=== PATIENT | male | born 1945 | race American Indian/Alaskan Native ===

== ENCOUNTER 2017-01-30 17:43 | Emergency (ER) | payer BC, MEDICARE ==
[2017-01-30 17:43] VITALS: BMI 32.1
[2017-01-30 18:07] VITALS: O2SAT 98
--- NOTE | 2017-01-30 19:31 | C.PDOC ---
History Of Present Illness 72 y/o male presents to the ED with complains of suprapubic distention and unsatisfactory urination for the past 2-3 days. Pt denies fever, abdominal pain , vomiting, diarrhea, back pain or any other complaints. Time Seen by Provider: 01/30/17 19:25 Chief Complaint (Nursing): Male Genitourinary History Per: Patient History/Exam Limitations: no limitations Onset/Duration Of Symptoms: Days Current Symptoms Are (Timing): Still Present Severity: Mild Quality Of Discomfort: denies: "Pain" Associated Symptoms: denies: Fever, Chills, Nausea, Vomiting, Diarrhea, Back Pain Alleviating Factors: None Recent travel outside of the [place]: No Past Medical History Reviewed: Historical Data, Nursing Documentation, Vital Signs Vital Signs: Last Vital Signs Temp 97.8 F 01/30/17 20:07 Pulse 67 01/30/17 20:07 Resp 20 01/30/17 20:07 BP 143/81 01/30/17 20:07 Pulse Ox 98 01/30/17 20:07 - Medical History PMH: Arthritis (LEFT KNEE), Back Problems, Gall Bladder Disease, HTN, Hypercholesterolemia, Kidney Stones (25 years ago) Surgical History: Cholecystectomy (2009) Family History: States: Unknown Family Hx - Social History Hx Alcohol Use: No Hx Substance Use: No - Immunization History Hx Tetanus Toxoid Vaccination: Yes Hx Influenza Vaccination: Yes Hx Pneumococcal Vaccination: Yes Review Of Systems Except As Marked, All Systems Reviewed And Found Negative. Constitutional: Negative for: Fever, Chills Gastrointestinal: Positive for: Other (suprapubic distention). Negative for: Nausea, Vomiting, Abdominal Pain, Diarrhea Genitourinary: Positive for: Other (inability to urinate) Musculoskeletal: Negative for: Back Pain Physical Exam - Physical Exam Appears: Non-toxic, No Acute Distress Skin: Warm, Dry, No Rash Head: Atraumatic, Normacephalic Neck: Normal ROM, Supple Chest: Symmetrical Cardiovascular: Rhythm Regular, No Murmur Respiratory: Normal Breath Sounds, No Rales, No Rhonchi, No Wheezing Gastrointestinal/Abdominal: No Tenderness, Distention (suprapubic) Back: No CVA Tenderness Extremity: Bilateral: Atraumatic Neurological/Psych: Oriented x3, Normal Speech ED Course And Treatment O2 Sat by Pulse Oximetry: 98 (on room air) Pulse Ox Interpretation: Normal Medical Decision Making Medical Decision Making: Bladder US showed 600cc urine. parker to leg bag for 650 cc f/u pending w Dr. Arora prior to arrival. Disposition Doctor Will See Patient In The: Office Counseled Patient/Family Regarding: Studies Performed, Diagnosis - Disposition Referrals: Dallas Arora Jr., MD [Staff Provider] - Disposition: HOME/ ROUTINE Disposition Time: 19:30 Condition: GOOD Additional Instructions: continue leg bag as normal Continue Flomax 0.4 mg every NIGHT Follow-up w Dr. Arora on Thursday 02/01 as scheduled. Instructions: Urinary Retention in Men (ED), Urinary Leg Bag (GEN) - Clinical Impression Clinical Impression: Urinary retention - Scribe Statement The provider has reviewed the documentation as recorded by the Scribandie Mcghee Provider Attestation: All medical record entries made by the Scribe were at my direction and personally dictated by me. I have reviewed the chart and agree that the record accurately reflects my personal performance of the history, physical exam, medical decision making, and the department course for this patient. I have also personally directed, reviewed, and agree with the discharge instructions and disposition.
[2017-01-30 19:47] LABS: RBC URINE 8 /hpf (0-3); URINE BACTERIA RARE (<OCC); URINE BILIRUBIN NEGATIVE (NEGATIVE); URINE BLOOD 1+ (NEGATIVE); URINE COLOR Straw (YELLOW); URINE GLUCOSE (UA) NORMAL (Normal); URINE KETONE NEGATIVE (NEGATIVE); URINE LEUKOCYTE ESTERASE NEG Leu/uL (Negative); URINE PROTEIN NEGATIVE (NEGATIVE); URINE UROBILINOGEN NORMAL mg/dL (0.2-1.0); WBC URINE 1 /hpf (0-5)
[2017-01-30 20:08] VITALS: BP 143/81; PULSE 67; RESP 20; TEMP 97.8
== END 2017-01-30 20:10 | disposition home or self-care (01) ==
LOC: C.ER 17:43
DX: R33.9 Retention of urine, unspecified (principal)

== ENCOUNTER 2017-02-03 17:31 | Emergency (ER) | payer BC, MEDICARE ==
[2017-02-03 17:31] VITALS: BMI 32.1
[2017-02-03 17:46] VITALS: RESP 18
[2017-02-03] MEDS ORDERED: Tmp-Smz 800 mg-160 mg DS Tab PO STA (18:56)
--- NOTE | 2017-02-03 18:56 | C.PDOC ---
History Of Present Illness 72 year old male presents to the ED with complaints of hematuria in his leg bag. Patient had a parker leg bag placed 5 days ago for urine retention and is pending prostate surgery in [address] Arora. He has no other complaints at this time. Time Seen by Provider: 02/03/17 17:54 Chief Complaint (Nursing): Male Genitourinary History Per: Patient History/Exam Limitations: no limitations Onset/Duration Of Symptoms: Hrs Current Symptoms Are (Timing): Still Present Severity: Mild Associated Symptoms: Urinary Symptoms Past Medical History Reviewed: Historical Data, Nursing Documentation, Vital Signs Vital Signs: Last Vital Signs Temp 98 F 02/03/17 19:10 Pulse 73 02/03/17 19:10 Resp 18 02/03/17 19:10 BP 142/78 02/03/17 19:10 Pulse Ox 98 02/03/17 20:49 - Medical History PMH: Arthritis (LEFT KNEE), Back Problems, Gall Bladder Disease, HTN, Hypercholesterolemia, Kidney Stones (25 years ago) Surgical History: Cholecystectomy (2009) Family History: States: Unknown Family Hx - Social History Hx Alcohol Use: No Hx Substance Use: No - Immunization History Hx Tetanus Toxoid Vaccination: Yes Hx Influenza Vaccination: Yes Hx Pneumococcal Vaccination: Yes Review Of Systems Except As Marked, All Systems Reviewed And Found Negative. Constitutional: Negative for: Fever, Chills Gastrointestinal: Negative for: Nausea, Vomiting, Abdominal Pain Genitourinary: Positive for: Hematuria Musculoskeletal: Negative for: Back Pain Physical Exam - Physical Exam Appears: Non-toxic, No Acute Distress, Other (+Leg bag with bloody urine. No clots) Skin: Normal Color, Warm, Dry Head: Atraumatic, Normacephalic Eye(s): bilateral: Normal Inspection Oral Mucosa: Moist Chest: Symmetrical Respiratory: No Accessory Muscle Use Gastrointestinal/Abdominal: No Soft, No Distention Extremity: Normal ROM Neurological/Psych: Oriented x3, Normal Speech, Normal Cognition ED Course And Treatment O2 Sat by Pulse Oximetry: 98 (Room air) Pulse Ox Interpretation: Normal Progress Note: Urinalysis ordered and reviewed. Patient treated with Bactrim. 18:00- Case discussed with Dr. Hernandez. Medical Decision Making Medical Decision Making: MILD hematuria with parker in place. Flushed and normal fxn. Pending prostate Surgery in [address] Arora Disposition Doctor Will See Patient In The: Office Counseled Patient/Family Regarding: Studies Performed, Diagnosis - Disposition Referrals: Dallas Arora Jr., MD [Staff Provider] - Disposition: HOME/ ROUTINE Disposition Time: 18:55 Condition: GOOD Additional Instructions: continue the leg bag Continue Bactrim DS (antibiotic) to take twice daily to prevent urinary tract infections. Follow-up with Dr. Arora on Monday for your procedure as scheduled. Prescriptions: Sulfamethoxazole/Trimethoprim [Bactrim DS 800 mg-160 mg] 1 tab PO BID #14 tab Instructions: Acute Hematuria (ED), Urinary Leg Bag (GEN) - Clinical Impression Clinical Impression: Hematuria - Scribe Statement The provider has reviewed the documentation as recorded by the Scribe Navjot Reynaga. Provider Attestation: All medical record entries made by the Scribe were at my direction and personally dictated by me. I have reviewed the chart and agree that the record accurately reflects my personal performance of the history, physical exam, medical decision making, and the department course for this patient. I have also personally directed, reviewed, and agree with the discharge instructions and disposition.
[2017-02-03] MEDS ORDERED: Tmp-Smz 800 mg-160 mg DS Tab ONE (19:04)
[2017-02-03 19:11] VITALS: BP 142/78; PULSE 73; TEMP 98
[2017-02-03 19:15] LABS: RBC URINE 54690 /hpf (0-3); URINE BACTERIA RARE (<OCC); URINE BILIRUBIN NEGATIVE (NEGATIVE); URINE BLOOD 3+ (NEGATIVE); URINE COLOR Amber (YELLOW); URINE GLUCOSE (UA) 1+ mg/dL (Normal); URINE KETONE 1+ mg/dL (NEGATIVE); URINE PROTEIN 2+ mg/dL (NEGATIVE); URINE UROBILINOGEN NORMAL mg/dL (0.2-1.0); WBC URINE 29 /hpf (0-5)
[2017-02-03 19:17] LABS: URINE LEUKOCYTE ESTERASE 1+ Leu/uL (Negative)
[2017-02-03 20:46] VITALS: O2SAT 98
== END 2017-02-03 19:11 | disposition home or self-care (01) ==
LOC: C.ER 17:31
DX: R31.9 Hematuria, unspecified (principal)

== ENCOUNTER 2017-02-04 16:59 | Emergency (ER) | payer BC ==
[2017-02-04 17:07] VITALS: BMI 32.8
[2017-02-04 19:13] LABS: RBC URINE 5320 /hpf (0-3); URINE BACTERIA RARE (<OCC); URINE BILIRUBIN NEGATIVE (NEGATIVE); URINE BLOOD 3+ (NEGATIVE); URINE COLOR Red (YELLOW); URINE GLUCOSE (UA) NORMAL (Normal); URINE KETONE NEGATIVE (NEGATIVE); URINE LEUKOCYTE ESTERASE TRACE Leu/uL (Negative); URINE PROTEIN 2+ mg/dL (NEGATIVE); WBC URINE 7 /hpf (0-5)
--- NOTE | 2017-02-04 20:00 | C.PDOC ---
History Of Present Illness Pt c/o that the urine stopped coming out from the catheter. He c/o suprapubic pain. Time Seen by Provider: 02/04/17 17:26 Chief Complaint (Nursing): Male Genitourinary History Per: Patient Onset/Duration Of Symptoms: Hrs (today) Current Symptoms Are (Timing): Still Present Severity: Moderate Quality Of Discomfort: Pressure Alleviating Factors: None Additional History Per: Prior Records Past Medical History Reviewed: Historical Data, Nursing Documentation, Vital Signs Vital Signs: Last Vital Signs Temp 97.6 F 02/04/17 17:07 Pulse 99 H 02/04/17 17:07 Resp 20 02/04/17 17:07 BP 129/84 02/04/17 17:07 Pulse Ox 98 02/04/17 17:07 - Medical History PMH: Arthritis (LEFT KNEE), Back Problems, Gall Bladder Disease, HTN, Hypercholesterolemia, Kidney Stones (25 years ago), Chronic Kidney Disease Surgical History: Cholecystectomy (2009) Family History: States: Unknown Family Hx - Social History Hx Alcohol Use: No Hx Substance Use: No - Immunization History Hx Tetanus Toxoid Vaccination: Yes Hx Influenza Vaccination: Yes Hx Pneumococcal Vaccination: Yes Review Of Systems Except As Marked, All Systems Reviewed And Found Negative. Constitutional: Negative for: Fever, Weakness Cardiovascular: Negative for: Chest Pain Respiratory: Negative for: Shortness of Breath Gastrointestinal: Negative for: Vomiting Genitourinary: Positive for: Hematuria. Negative for: Scrotal Pain Musculoskeletal: Negative for: Neck Pain, Back Pain Skin: Negative for: Rash Neurological: Negative for: Weakness, Numbness, Seizures, Altered Mental Status Physical Exam - Physical Exam Appears: Non-toxic, No Acute Distress Skin: Normal Color, Warm, Dry Head: Atraumatic, Normacephalic Eye(s): bilateral: PERRL, EOMI Oral Mucosa: Moist Neck: Normal ROM, Supple Cardiovascular: Rhythm Regular Respiratory: Normal Breath Sounds, No Accessory Muscle Use Gastrointestinal/Abdominal: Soft, Tenderness (mild suprapubic), Other ( distended urinary bladder) Back: No CVA Tenderness Male Genital: No Testicular Tenderness, No Testicular Swelling, No Inguinal Tenderness, No Inguinal Swelling, No Scrotal Swelling, Other (Parker catheter in place) Extremity: Normal ROM Neurological/Psych: Oriented x3, Normal Motor, Normal Sensation ED Course And Treatment O2 Sat by Pulse Oximetry: 98 Pulse Ox Interpretation: Normal Progress Note: Parker catheter was flushed by RN with success. The urine is flowing throught the parker catheter again with relief of symptoms. Pt now feels much better and wants to go home. He has an appointment with Dr. Arora in 2 days. Reassessment Condition: Improved Disposition Counseled Patient/Family Regarding: Studies Performed, Diagnosis, Need For Followup - Disposition Referrals: Emerson Hernandez MD [Staff Provider] - Dallas Arora Jr., MD [Staff Provider] - Disposition: HOME/ ROUTINE Disposition Time: 20:01 Condition: IMPROVED Additional Instructions: Drink plenty of fluids. Follow up with your Urologist in 2 days. Return to the ER if you develop pain, fever, urine stops coming out, worsening of symptoms or if you have any other concerns. Instructions: Parker Catheter Placement and Care (ED), Urinary Leg Bag (GEN) - Clinical Impression Clinical Impression: Hematuria, Urinary retention, Obstructed Parker catheter
[2017-02-04 20:11] VITALS: BP 130/76; PULSE 90; RESP 18; TEMP 89.2; O2SAT 100
== END 2017-02-04 21:23 | disposition home or self-care (01) ==
LOC: C.ER 16:59
DX: T83.098A Other mechanical complication of other urinary catheter, initial encounter (principal); Y84.8 Other medical procedures as the cause of abnormal reaction of the patient, or of later complication, without mention of misadventure at the time of the procedure; R33.9 Retention of urine, unspecified; R31.9 Hematuria, unspecified

== ENCOUNTER 2017-02-06 00:18 | Emergency (ER) | payer BC ==
[2017-02-06 00:18] VITALS: BMI 32.8
[2017-02-06 00:26] VITALS: RESP 16; TEMP 97.7
--- NOTE | 2017-02-06 03:17 | C.PDOC ---
History Of Present Illness Patient presents to Ed c/o Bowers catheter malfunction where urine is leaking around catheter and leg bag shows gross hematuria. Patient sts he was in ED every day for the last 3 days with the same complains. Patient sts he has prostate problem and has surgery schedule with for today. Patient denies any pain/fever. Time Seen by Provider: 02/06/17 01:23 Chief Complaint (Nursing): Male Genitourinary History Per: Patient History/Exam Limitations: no limitations Onset/Duration Of Symptoms: Days Current Symptoms Are (Timing): Still Present Pain Scale Rating Of: 0 Quality Of Discomfort: Unable To Describe Associated Symptoms: denies: Fever, Nausea, Vomiting Past Medical History Reviewed: Historical Data, Nursing Documentation, Vital Signs Vital Signs: Last Vital Signs Temp 97.7 F 02/06/17 00:23 Pulse 91 H 02/06/17 00:23 Resp 16 02/06/17 00:23 BP 144/81 02/06/17 00:23 Pulse Ox 97 02/06/17 03:16 - Medical History PMH: Arthritis (LEFT KNEE), Back Problems, Gall Bladder Disease, HTN, Hypercholesterolemia, Kidney Stones (25 years ago) Denies: Chronic Kidney Disease Surgical History: Cholecystectomy (2009) Family History: States: Unknown Family Hx - Social History Hx Alcohol Use: No Hx Substance Use: No - Immunization History Hx Tetanus Toxoid Vaccination: Yes Hx Influenza Vaccination: Yes Hx Pneumococcal Vaccination: Yes Review Of Systems Except As Marked, All Systems Reviewed And Found Negative. Physical Exam - Physical Exam Appears: Well, Non-toxic, No Acute Distress Skin: Normal Color, Warm, No Rash Head: Atraumatic, Normacephalic Eye(s): bilateral: Normal Inspection Neck: Normal, Supple Chest: Symmetrical, Deformity Cardiovascular: Rhythm Regular Respiratory: Normal Breath Sounds Gastrointestinal/Abdominal: Normal Exam, Soft, No Tenderness Extremity: Normal ROM, No Tenderness Neurological/Psych: Oriented x3, Normal Speech, Normal Cognition ED Course And Treatment O2 Sat by Pulse Oximetry: 97 Progress Note: Bladder irrigated with NS, several blood clots came out and urine looks preschool assistant, no leakage from the Bowers catheter anymore. Patient wants to be d/c home to get ready for his surgery. Disposition - Disposition Referrals: Dallas Arora Jr., MD [Staff Provider] - Disposition: HOME/ ROUTINE Disposition Time: 03:14 Condition: IMPROVED Additional Instructions: Follow up with PMD within 1-2 days. Return to ED if feel worse. Instructions: Urinary Leg Bag (GEN) - Clinical Impression Clinical Impression: Obstructed Bowers catheter
[2017-02-06 05:04] VITALS: BP 134/82; PULSE 84; O2SAT 98
== END 2017-02-06 05:11 | disposition home or self-care (01) ==
LOC: C.ER 00:18
DX: T83.091A Other mechanical complication of indwelling urethral catheter, initial encounter (principal); Y83.8 Other surgical procedures as the cause of abnormal reaction of the patient, or of later complication, without mention of misadventure at the time of the procedure

== ENCOUNTER 2017-02-07 15:56 | Inpatient (IN) | payer BC, MEDICARE ==
[2017-02-07 15:56] VITALS: BMI 32.8
[2017-02-07 17:03] LABS: BASO # 0.1 K/uL (0.0-0.2); BASO % 0.8 % (0.0-2.0); EOS # 0.1 K/uL (0.0-0.7); EOS % 0.8 % (0.0-4.0); HEMATOCRIT 37.7 % (35.0-51.0); LYMPH # 2.3 K/uL (1.0-4.3); LYMPH % 22.1 % (20.0-40.0); MEAN CORPUSCULAR HEMOGLOBIN 29.8 pg (27.0-31.0); MEAN CORPUSCULAR HGB CONC 34.6 g/dL (33.0-37.0); MEAN PLATELET VOLUME 7.2 fL (7.2-11.7); MONO # 0.7 K/uL (0.0-0.8); MONO % 6.8 % (0.0-10.0)
[2017-02-07 17:04] LABS: WHITE BLOOD COUNT 10.5 K/uL (4.8-10.8)
[2017-02-07 17:11] LABS: INR 1.1
[2017-02-07 17:12] LABS: POTASSIUM 3.2 mmol/L (3.6-5.2)
[2017-02-07 17:14] LABS: ALB/GLOB RATIO 1.2 (1.0-2.1); BILIRUBIN,TOTAL 0.7 mg/dL (0.2-1.3); TOTAL PROTEIN 8.3 g/dL (6.3-8.3)
[2017-02-07 17:15] LABS: CALCIUM 9.5 mg/dl (8.6-10.4)
--- NOTE | 2017-02-07 17:18 | C.PDOC ---
History Of Present Illness 72 y/o male referred to ED by Dr Arora for persistent hematuria. Pt seen in [facility]'s office today, clots and blood flushed out of catheter, hematuria catheter placed (won't collapse under suction). Pt has been seen multiple times in ED for the same. Pt denies abdominal pain, vomiting, back pain or any other complaints. Time Seen by Provider: 02/07/17 16:11 Chief Complaint (Nursing): Male Genitourinary History Per: Patient History/Exam Limitations: no limitations Onset/Duration Of Symptoms: Days Current Symptoms Are (Timing): Still Present Severity: Mild Associated Symptoms: denies: Fever, Chills, Vomiting, Diarrhea, Back Pain Alleviating Factors: None Recent travel outside of the [place]: No Past Medical History Reviewed: Historical Data, Nursing Documentation, Vital Signs Vital Signs: Last Vital Signs Temp 98.9 F 02/07/17 19:10 Pulse 100 H 02/07/17 16:03 Resp 20 02/07/17 16:03 BP 134/74 02/07/17 16:03 Pulse Ox 95 02/07/17 19:10 - Medical History PMH: Arthritis (LEFT KNEE), Back Problems, Colonic Polyps, Gall Bladder Disease , HTN, Hypercholesterolemia, Kidney Stones (25 years ago) Surgical History: Cholecystectomy (2009) Family History: States: Unknown Family Hx - Social History Hx Alcohol Use: No Hx Substance Use: No - Immunization History Hx Tetanus Toxoid Vaccination: Yes Hx Influenza Vaccination: Yes Hx Pneumococcal Vaccination: Yes Review Of Systems Except As Marked, All Systems Reviewed And Found Negative. Constitutional: Negative for: Fever, Chills Gastrointestinal: Negative for: Vomiting, Abdominal Pain, Diarrhea Genitourinary: Positive for: Hematuria. Negative for: Dysuria Musculoskeletal: Negative for: Back Pain Physical Exam - Physical Exam Appears: Non-toxic, No Acute Distress, Other (Tall, black) Skin: Warm, Dry, No Rash Head: Atraumatic, Normacephalic Chest: Symmetrical Cardiovascular: Rhythm Regular, No Murmur Respiratory: Normal Breath Sounds, No Rales, No Rhonchi, No Wheezing Gastrointestinal/Abdominal: Soft, No Tenderness Back: Normal Inspection Male Genital: Other (parker in place with bloody urine) Extremity: Bilateral: Atraumatic Neurological/Psych: Oriented x3, Normal Speech ED Course And Treatment - Laboratory Results Result Diagrams: 02/07/17 16:58 02/07/17 16:58 ECG: Interpreted By Me ECG Rhythm: Sinus Rhythm ECG Interpretation: Normal Rate From EC O2 Sat by Pulse Oximetry: 95 (on room air) Pulse Ox Interpretation: Normal - Radiology CXR: Interpreted by Me CXR Interpretation: Yes: No Acute Disease Reevaluation Time: 19:08 - Physician Consult Information Outcome Of Conversation: 1899: d/w Dr. Schwartz- PMD-- ok to obs. :d/w Dr. Arora- will eval @ bedside. Medical Decision Making Medical Decision Making: Spoke to Dr Arora, he prefers patient to be admitted, pending procedure with special device. 5th ED visit for persistent hematuria with clots and leaking around the Parker- Disposition Doctor Will See Patient In The: Hospital Counseled Patient/Family Regarding: Studies Performed, Diagnosis - Disposition Disposition: HOSPITALIZED Disposition Time: 19:00 Condition: GOOD - Clinical Impression Clinical Impression: Hematuria - Scribe Statement The provider has reviewed the documentation as recorded by the Sherry Mcghee Provider Attestation: All medical record entries made by the Sherry were at my direction and personally dictated by me. I have reviewed the chart and agree that the record accurately reflects my personal performance of the history, physical exam, medical decision making, and the department course for this patient. I have also personally directed, reviewed, and agree with the discharge instructions and disposition.
[2017-02-07 17:25] LABS: TROPONIN I 0.013 ng/mL (0.00-0.120)
--- NOTE | 2017-02-07 17:39 | RAD ---
PROCEDURE: CHEST RADIOGRAPH, 1 VIEW HISTORY: abd pain COMPARISON: None available. FINDINGS: LUNGS: Clear. PLEURA: No pneumothorax or pleural fluid seen. CARDIOVASCULAR: No radiographic findings to suggest acute or significant cardiovascular disease. OSSEOUS STRUCTURES: No significant abnormalities. VISUALIZED UPPER ABDOMEN: Normal. OTHER FINDINGS: None. IMPRESSION: No active disease.
[2017-02-07 17:46] LABS: RBC URINE 48186 /hpf (0-3); URINE BACTERIA MANY (<OCC); URINE BILIRUBIN NEGATIVE (NEGATIVE); URINE BLOOD 2+ (NEGATIVE); URINE COLOR Amber (YELLOW); URINE GLUCOSE (UA) 1+ mg/dL (Normal); URINE KETONE 1+ mg/dL (NEGATIVE); URINE LEUKOCYTE ESTERASE NEG Leu/uL (Negative); URINE PROTEIN 1+ mg/dL (NEGATIVE); URINE UROBILINOGEN NORMAL mg/dL (0.2-1.0)
[2017-02-07 17:47] LABS: WBC URINE 8 /hpf (0-5)
--- NOTE | 2017-02-07 19:28 | CP.PCM.PN ---
Subjective - Date & Time of Evaluation Date of Evaluation: 02/07/17 Time of Evaluation: 19:27 - Subjective Subjective: PT exam. in ER chart reviewed. Will procede with cysto tomorrow if extra long cystoscope available. [facility] Objective - Vital Signs/Intake and Output Vital Signs (last 24 hours): Temp Pulse Resp BP Pulse Ox 97.8 F 100 H 20 134/74 95 02/07/17 16:03 02/07/17 16:03 02/07/17 16:03 02/07/17 16:03 02/07/17 19:10 - Labs Labs: PT 12.1 SECONDS (9.7-12.2) 02/07/17 16:58 INR 1.1 02/07/17 16:58 APTT 35 SECONDS (21-34) H 02/07/17 16:58
[2017-02-07] MEDS ORDERED: Moxifloxacin IV 400mg/250ml NS 250 ML IVPB SCH (19:30)
--- NOTE | 2017-02-07 19:31 | CP.PCM.HP ---
Past Patient History - Infectious Disease Hx of Infectious Diseases: None - Past Medical History & Family History Past Medical History?: Yes - Past Social History Smoking Status: Never Smoked - CARDIAC Hx Hypercholesterolemia: Yes Hx Hypertension: Yes - PULMONARY Hx Respiratory Disorders: No - NEUROLOGICAL Hx Neurological Disorder: No - HEENT Hx HEENT Problems: No - RENAL Hx Kidney Stones: Yes (25 years ago) - ENDOCRINE/METABOLIC Hx Endocrine Disorders: No - HEMATOLOGICAL/ONCOLOGICAL Hx Blood Disorders: No - INTEGUMENTARY Hx Dermatological Problems: No - MUSCULOSKELETAL/RHEUMATOLOGICAL Hx Arthritis: Yes (LEFT KNEE) - GASTROINTESTINAL Hx Gall Bladder Disease: Yes - GENITOURINARY/GYNECOLOGICAL Hx Genitourinary Disorders: Yes Hx Hematuria: Yes Hx Prostate Problems: Yes (catheter) Other/Comment: 02/07/17-PT. HAS IRWIN CATH IN PLACE-PER ER RECORD OF 02/06/17. - PSYCHIATRIC Hx Substance Use: No - SURGICAL HISTORY Hx Cholecystectomy: Yes (2009) - ANESTHESIA Hx Anesthesia: Yes Hx Anesthesia Reactions: No Hx Malignant Hyperthermia: No Meds Allergies/Adverse Reactions: Allergies Allergy/AdvReac Type Severity Reaction Status Date / Time No Known Allergies Allergy Verified 02/07/17 16:06 Results - Vital Signs Recent Vital Signs: Last Vital Signs Temp 97.8 F 02/07/17 16:03 Pulse 100 H 02/07/17 16:03 Resp 20 02/07/17 16:03 BP 134/74 02/07/17 16:03 Pulse Ox 95 02/07/17 19:10 - Labs Result Diagrams: 02/07/17 16:58 02/07/17 16:58 Assessment & Plan - Assessment and Plan (Free Text) Plan: protonix loveox on hold scd avelox elbert sme as ordered home med reconciiation
[2017-02-07] MEDS ORDERED: Oxycodone/Acetaminophen 5/325 mg Tab ONE (19:38)
[2017-02-07] MEDS ORDERED: Oxycodone/Acetaminophen 5/325 mg Tab PO STA (19:45)
[2017-02-07] MEDS ORDERED: Home Med 1 UNIT (Atorvastatin [Lipitor] 40 MG) PO SCH (22:00)
[2017-02-08] MEDS: Pantoprazole 40 mg EC Tab PO SCH ×2 (09:26→10:13)
--- NOTE | 2017-02-08 09:29 | CP.PCM.PN ---
Subjective - Date & Time of Evaluation Date of Evaluation: 02/08/17 Time of Evaluation: 07:45 - Subjective Subjective: Medicine Progress Note- Dr Hernandez's service Patient seen and examined. Patient was sent to the ED yesterday by his physician Dr Arora for persistent hematuria. Per patient, he was in the office yesterday and a catheter was unable to be placed. He was in pain on admission but states once the parker catheter was put in his pain was relieved. Patient is resting comfortably. Cystoscopy can not be done today pending proper instrument availability. Denies fever, chills, nausea, vomiting, diarrhea, abdominal pain, headache, palpitations, dizziness, chest pain, and shortness of breath. Objective - Vital Signs/Intake and Output Vital Signs (last 24 hours): Temp Pulse Resp BP Pulse Ox 98.7 F 93 H 20 120/69 95 02/07/17 23:54 02/07/17 23:54 02/07/17 23:54 02/07/17 23:54 02/07/17 23:54 Intake and Output: 02/08/17 02/08/17 06:59 18:59 Intake Total 0 Output Total 1000 Balance -1000 - Medications Medications: Current Medications Acetaminophen (Tylenol 325mg Tab) 325 mg PO Q6 PRN PRN Reason: Pain, Mild (1-3) Amlodipine Besylate (Norvasc) 10 mg PO DAILY [facility] Pantoprazole Sodium (Protonix Ec Tab) 40 mg PO DAILY [facility] - Labs Labs: PT 12.1 SECONDS (9.7-12.2) 02/07/17 16:58 INR 1.1 02/07/17 16:58 APTT 35 SECONDS (21-34) H 02/07/17 16:58 - Constitutional Appears: Non-toxic, No Acute Distress - Head Exam Head Exam: ATRAUMATIC, NORMOCEPHALIC - Eye Exam Eye Exam: EOMI, Normal appearance - ENT Exam ENT Exam: Mucous Membranes Moist - Neck Exam Neck Exam: Normal Inspection - Respiratory Exam Respiratory Exam: Clear to Ausculation Bilateral, NORMAL BREATHING PATTERN. absent: Decreased Breath Sounds, Rhonchi, Wheezes, Respiratory Distress - Cardiovascular Exam Cardiovascular Exam: REGULAR RHYTHM, +S1, +S2 - GI/Abdominal Exam GI & Abdominal Exam: Soft, Normal Bowel Sounds. absent: Distended, Firm, Guarding, Rigid, Tenderness - Exam Additional comments: Parker catheter draining dark red urine with clots - Extremities Exam Extremities Exam: Normal Inspection. absent: Pedal Edema, Tenderness - Neurological Exam Neurological Exam: Alert, Awake, CN II-XII Intact, Oriented x3 - Psychiatric Exam Psychiatric exam: Normal Affect, Normal Mood - Skin Skin Exam: Dry, Intact, Normal Color, Warm Assessment and Plan - Assessment and Plan (Free Text) Assessment: (1) Hematuria Pending cystoscopy with Dr Arora Parker catheter Hgb stable at 13.1, platelets 232, INR 1.1- continue to monitor CBC daily (2) HTN Well controlled Continue home med Amlodipine 10mg PO daily (3) Prophylactic measures Chemical anticoagulation contraindicated secondary to hematuria SCDs Protonix 40mg PO daily Management and care per Dr Hernandez. Discussed with attending.
[2017-02-08] MEDS ORDERED: POTASSIUM CHLORIDE 20 MEQ PO SCH (10:00)
[2017-02-08] MEDS ORDERED: HYDROCHLOROTHIAZIDE 25 MG PO SCH (10:00)
[2017-02-08] MEDS ORDERED: TERAZOSIN 10 MG PO SCH (10:00)
[2017-02-08] MEDS ORDERED: ETODOLAC 400 MG PO SCH (10:00)
[2017-02-08] MEDS ORDERED: Home Med 1 UNIT (Cholecalciferol (Vitamin D3) [Vitamin D3] 2,000 UNIT) PO SCH (10:00)
--- NOTE | 2017-02-08 10:03 | CP.PCM.PN ---
Subjective - Date & Time of Evaluation Date of Evaluation: 02/08/17 Time of Evaluation: 09:59 - Subjective Subjective: PT examined chart reviewed,urine remains bloody, awaiting extralong cystoscope which is requested as soon as available will procede.with cysto.. pt may eat continue irrigating parker prn. [place] Objective - Vital Signs/Intake and Output Vital Signs (last 24 hours): Temp Pulse Resp BP Pulse Ox 97.9 F 75 18 123/73 96 02/08/17 08:45 02/08/17 08:45 02/08/17 08:45 02/08/17 08:45 02/08/17 08:45 Intake and Output: 02/08/17 02/08/17 06:59 18:59 Intake Total 0 Output Total 1000 Balance -1000 - Medications Medications: Current Medications Acetaminophen (Tylenol 325mg Tab) 325 mg PO Q6 PRN PRN Reason: Pain, Mild (1-3) Amlodipine Besylate (Norvasc) 10 mg PO DAILY [facility] Last Admin: 02/08/17 09:40 Dose: 10 mg Pantoprazole Sodium (Protonix Ec Tab) 40 mg PO DAILY [facility] - Labs Labs: PT 12.1 SECONDS (9.7-12.2) 02/07/17 16:58 INR 1.1 02/07/17 16:58 APTT 35 SECONDS (21-34) H 02/07/17 16:58
[2017-02-08 11:18] LABS: HEMATOCRIT 37.6 % (35.0-51.0); MEAN CELL VOLUME 86.4 fL (80.0-94.0); MEAN CORPUSCULAR HEMOGLOBIN 28.5 pg (27.0-31.0); MEAN PLATELET VOLUME 7.4 fL (7.2-11.7); RED CELL DISTRIBUTION WIDTH 14.2 % (11.5-14.5); WHITE BLOOD COUNT 11.3 K/uL (4.8-10.8)
[2017-02-08 11:30] LABS: CHLORIDE 96 mmol/L (98-107); POTASSIUM 3.2 mmol/L (3.6-5.2); SODIUM 137 mmol/L (132-148)
[2017-02-08 11:32] LABS: GFR AFRICAN-AMERICAN > 60
[2017-02-08 11:33] LABS: ALB/GLOB RATIO 1.1 (1.0-2.1); ALKALINE PHOSPHATASE 68 U/L (38-126); ALT/SGPT 19 U/L (21-72); AST/SGOT 32 U/L (17-59); BLOOD UREA NITROGEN 21 mg/dL (9-20); CALCIUM 9.2 mg/dl (8.6-10.4); CARBON DIOXIDE 26 mmol/L (22-30); GLUCOSE,RANDOM 106 mg/dL (75-110); TOTAL PROTEIN 8.1 g/dL (6.3-8.3)
[2017-02-08] MEDS ORDERED: Potassium Chloride 20 mEq ER Tab PO ONE (15:30)
--- NOTE | 2017-02-08 16:52 | CARD ---
APPROVED REPORT EKG Measurement Heart [id number] <Conclusion> Sinus rhythm with occasional premature ventricular complexes Left anterior fascicular block Left ventricular hypertrophy with QRS widening and repolarization abnormality Abnormal ECG
[2017-02-08] MEDS ORDERED: HYDROmorphone 0.5 mg/0.5 ml ISec ONE (20:13)
[2017-02-09 06:48] LABS: CHLORIDE 101 mmol/L (98-107); POTASSIUM 3.4 mmol/L (3.6-5.2); SODIUM 138 mmol/L (132-148)
[2017-02-09 06:50] LABS: GFR AFRICAN-AMERICAN > 60
[2017-02-09 06:51] LABS: ALB/GLOB RATIO 1.1 (1.0-2.1); ALKALINE PHOSPHATASE 62 U/L (38-126); ALT/SGPT 21 U/L (21-72); AST/SGOT 26 U/L (17-59); BLOOD UREA NITROGEN 21 mg/dL (9-20); CALCIUM 8.5 mg/dl (8.6-10.4); CARBON DIOXIDE 24 mmol/L (22-30); GLUCOSE,RANDOM 113 mg/dL (75-110); TOTAL PROTEIN 7.4 g/dL (6.3-8.3)
[2017-02-09 06:55] LABS: BASO % 0.2 % (0.0-2.0); EOS % 0.2 % (0.0-4.0); HEMATOCRIT 32.8 % (35.0-51.0); LYMPH # 1.1 K/uL (1.0-4.3); MEAN CELL VOLUME 85.5 fL (80.0-94.0); MEAN CORPUSCULAR HEMOGLOBIN 29.1 pg (27.0-31.0); MEAN PLATELET VOLUME 7.6 fL (7.2-11.7); MONO # 0.8 K/uL (0.0-0.8); MONO % 7.6 % (0.0-10.0); RED CELL DISTRIBUTION WIDTH 13.7 % (11.5-14.5); WHITE BLOOD COUNT 10.6 K/uL (4.8-10.8)
--- NOTE | 2017-02-09 07:12 | HP ---
A 72-year-old male admitted to the hospital with chief complaint of shortness of breath, weakness, fa tigue. The patient came to the Emergency Room after having hematuria. and found to have gross hematuria. The patient was weak, shivering and advised admission. PAST MEDICAL HISTORY: Hypertension. The patient is a nonsmoker, nondrinker. PHYSICAL EXAMINATION: GENERAL: The patient is awake, alert, oriented. VITAL SIGNS: Temperature 98, pulse 90, blood pressure 130/90. HEENT: Within normal limits. NECK: Supple. CHEST: Symmetrical. HEART: Irregular. ABDOMEN: Soft. EXTREMITIES: No edema. GENITOURINARY: Bowers catheter in place with gross hematuria. The patient suffers from gross hematuria, rule out benign prostatic hypertrophy, malignancy. At this point, get bedrest, IV fluid, supportive care. Emerson Hernandez MD cc: [phone] TT: 02/08/2017 10:14:22 en
--- NOTE | 2017-02-09 09:01 | CP.PCM.PN ---
Subjective - Date & Time of Evaluation Date of Evaluation: 02/09/17 Time of Evaluation: 09:05 - Subjective Subjective: Dr. Hernandez service: Patient seen in room. Patient says his current pain has improved since admission. He says he started having painful bright red blood with urination about 2 weeks ago. But denies fever chills, nausea, vomiting, diarrhea, chest pain, shortness of breath, or palpitations. Objective - Vital Signs/Intake and Output Vital Signs (last 24 hours): Temp Pulse Resp BP Pulse Ox 99.3 F 101 H 20 138/72 96 02/09/17 02:00 02/09/17 02:00 02/09/17 02:00 02/09/17 02:00 02/09/17 02:00 Intake and Output: 02/09/17 02/09/17 06:59 18:59 Intake Total 200 Output Total 500 Balance -300 - Medications Medications: Current Medications Acetaminophen (Tylenol 325mg Tab) 325 mg PO Q6 PRN PRN Reason: Pain, Mild (1-3) Last Admin: 02/08/17 17:54 Dose: 325 mg Amlodipine Besylate (Norvasc) 10 mg PO DAILY [facility]PLACED BY [facility] Last Admin: 02/08/17 09:40 Dose: 10 mg Finasteride (Proscar) 5 mg PO DAILY REPLACED BY [facility] Last Admin: 02/08/17 10:50 Dose: 5 mg Pantoprazole Sodium (Protonix Ec Tab) 40 mg PO DAILY REPLACED BY [facility] Last Admin: 02/08/17 10:13 Dose: 40 mg Tamsulosin HCl (Flomax) 0.4 mg PO DAILY REPLACED BY [facility] Last Admin: 02/08/17 10:50 Dose: 0.4 mg - Labs Labs: 02/09/17 06:26 02/09/17 06:26 PT 12.1 SECONDS (9.7-12.2) 02/07/17 16:58 INR 1.1 02/07/17 16:58 APTT 35 SECONDS (21-34) H 02/07/17 16:58 - Constitutional Appears: Non-toxic, No Acute Distress - Head Exam Head Exam: NORMAL INSPECTION - Eye Exam Eye Exam: Normal appearance, PERRL Pupil Exam: NORMAL ACCOMODATION - ENT Exam ENT Exam: Normal Exam - Respiratory Exam Respiratory Exam: Clear to Ausculation Bilateral. absent: Rales, Rhonchi, Wheezes - Cardiovascular Exam Cardiovascular Exam: REGULAR RHYTHM, RRR, +S1, +S2. absent: Gallop, Rubs - GI/Abdominal Exam GI & Abdominal Exam: Soft, Normal Bowel Sounds. absent: Distended, Tenderness, Rebound - Extremities Exam Extremities Exam: Normal Inspection. absent: Pedal Edema - Neurological Exam Neurological Exam: Alert - Psychiatric Exam Psychiatric exam: Normal Affect, Normal Mood - Skin Skin Exam: Dry, Normal Color. absent: Pallor Assessment and Plan - Assessment and Plan (Free Text) Assessment: Assessment: (1) Hematuria 02/09: Patient will go for cystoscopy tomorrow with Elissa Johnson with irrigation currently, Hbg is 11.2, continue to monitor. Previous note: Pending cystoscopy with Dr Maite Bowers catheter Hgb stable at 13.1, platelets 232, INR 1.1- continue to monitor CBC daily (2) HTN Well controlled Continue home med Amlodipine 10mg PO daily (3) Prophylactic measures Chemical anticoagulation contraindicated secondary to hematuria SCDs Protonix 40mg PO daily Management and care per Dr Hernandez. Discussed with attending.
[2017-02-09] MEDS ORDERED: Potassium Chloride 20 mEq ER Tab PO STA (09:02)
[2017-02-09] MEDS ORDERED: Fluticasone Nasal 50 mcg/Spray NS PRN (09:48)
[2017-02-09] MEDS: Pantoprazole 40 mg EC Tab PO SCH (09:53)
--- NOTE | 2017-02-09 09:56 | CP.PCM.PN ---
Subjective - Date & Time of Evaluation Date of Evaluation: 02/09/17 Time of Evaluation: 09:54 - Subjective Subjective: Urine Bloody still requiring frequent irrigation for cysto tomorrow if Extralong cystoscope arrives. Pt examined Chart reviewed. Maite Objective - Vital Signs/Intake and Output Vital Signs (last 24 hours): Temp Pulse Resp BP Pulse Ox 98.9 F 104 H 20 122/66 93 L 02/09/17 07:00 02/09/17 07:00 02/09/17 07:00 02/09/17 07:00 02/09/17 07:00 Intake and Output: 02/09/17 02/09/17 06:59 18:59 Intake Total 200 Output Total 500 Balance -300 - Medications Medications: Current Medications Acetaminophen (Tylenol 325mg Tab) 325 mg PO Q6 PRN PRN Reason: Pain, Mild (1-3) Last Admin: 02/08/17 17:54 Dose: 325 mg Amlodipine Besylate (Norvasc) 10 mg PO DAILY [facility] Last Admin: 02/08/17 09:40 Dose: 10 mg Finasteride (Proscar) 5 mg PO DAILY [facility] Last Admin: 02/08/17 10:50 Dose: 5 mg Fluticasone Propionate (Flonase) 2 spr NS BID PRN PRN Reason: Sinus symptoms Ceftriaxone Sodium 1 gm/ (Sodium Chloride) 100 mls @ 100 mls/hr IVPB DAILY [facility] Loratadine (Claritin) 10 mg PO DAILY PRN PRN Reason: Sinus symptoms Pantoprazole Sodium (Protonix Ec Tab) 40 mg PO DAILY [facility] Last Admin: 02/08/17 10:13 Dose: 40 mg Tamsulosin HCl (Flomax) 0.4 mg PO DAILY [facility] Last Admin: 02/08/17 10:50 Dose: 0.4 mg - Labs Labs: 02/09/17 06:26 02/09/17 06:26 PT 12.1 SECONDS (9.7-12.2) 02/07/17 16:58 INR 1.1 02/07/17 16:58 APTT 35 SECONDS (21-34) H 02/07/17 16:58
--- NOTE | 2017-02-10 07:42 | CP.PCM.PN ---
Subjective - Date & Time of Evaluation Date of Evaluation: 02/16/17 Time of Evaluation: 08:30 - Subjective Subjective: Dr. Hernandez service: Patient seen and examined in room. He is still complaining of sinus congestion. But say he feels better than yesterday. He denies fever, chllls, nausea, vomiting, fever, chills. Objective - Vital Signs/Intake and Output Vital Signs (last 24 hours): Temp Pulse Resp BP Pulse Ox 98.7 F 97 H 20 131/76 95 02/09/17 23:57 02/09/17 23:57 02/09/17 23:57 02/09/17 23:57 02/09/17 23:57 Intake and Output: 02/10/17 02/10/17 06:59 18:59 Output Total 700 Balance -700 - Medications Medications: Current Medications Acetaminophen (Tylenol 325mg Tab) 325 mg PO Q6 PRN PRN Reason: Pain, Mild (1-3) Last Admin: 02/09/17 13:56 Dose: 325 mg Amlodipine Besylate (Norvasc) 10 mg PO DAILY [facility] Last Admin: 02/09/17 09:53 Dose: 10 mg Finasteride (Proscar) 5 mg PO DAILY [facility] Last Admin: 02/09/17 09:53 Dose: 5 mg Fluticasone Propionate (Flonase) 2 spr NS BID PRN PRN Reason: Sinus symptoms Ceftriaxone Sodium 1 gm/ (Sodium Chloride) 100 mls @ 100 mls/hr IVPB DAILY [facility] Last Admin: 02/09/17 10:40 Dose: 100 mls/hr Loratadine (Claritin) 10 mg PO DAILY PRN PRN Reason: Sinus symptoms Pantoprazole Sodium (Protonix Ec Tab) 40 mg PO DAILY [facility] Last Admin: 02/09/17 09:53 Dose: 40 mg Tamsulosin HCl (Flomax) 0.4 mg PO DAILY [facility] Last Admin: 02/09/17 09:53 Dose: 0.4 mg - Labs Labs: 02/09/17 06:26 02/09/17 06:26 PT 12.1 SECONDS (9.7-12.2) 02/07/17 16:58 INR 1.1 02/07/17 16:58 APTT 35 SECONDS (21-34) H 02/07/17 16:58 - Constitutional Appears: Non-toxic, No Acute Distress - Head Exam Head Exam: NORMOCEPHALIC - Eye Exam Eye Exam: Normal appearance Pupil Exam: NORMAL ACCOMODATION - ENT Exam ENT Exam: Normal Exam - Respiratory Exam Respiratory Exam: Clear to Ausculation Bilateral. absent: Rales, Rhonchi, Wheezes - Cardiovascular Exam Cardiovascular Exam: REGULAR RHYTHM, RRR, +S1, +S2. absent: Gallop, Rubs - GI/Abdominal Exam GI & Abdominal Exam: Soft, Normal Bowel Sounds. absent: Tenderness - Exam Additional comments: Bowers in palce - Psychiatric Exam Psychiatric exam: Normal Affect, Normal Mood - Skin Skin Exam: Normal Color
[2017-02-10 08:14] LABS: BASO % 0.3 % (0.0-2.0); EOS # 0.1 K/uL (0.0-0.7); EOS % 0.9 % (0.0-4.0); HEMATOCRIT 30.5 % (35.0-51.0); LYMPH # 1.9 K/uL (1.0-4.3); LYMPH % 17.4 % (20.0-40.0); MEAN CELL VOLUME 85.9 fL (80.0-94.0); MEAN CORPUSCULAR HEMOGLOBIN 28.9 pg (27.0-31.0); MEAN CORPUSCULAR HGB CONC 33.6 g/dL (33.0-37.0); MEAN PLATELET VOLUME 7.5 fL (7.2-11.7); MONO # 1.3 K/uL (0.0-0.8); MONO % 11.2 % (0.0-10.0); WHITE BLOOD COUNT 11.2 K/uL (4.8-10.8)
[2017-02-10 08:31] LABS: CHLORIDE 100 mmol/L (98-107)
[2017-02-10 08:32] LABS: POTASSIUM 3.7 mmol/L (3.6-5.2); SODIUM 139 mmol/L (132-148)
[2017-02-10 08:34] LABS: ALKALINE PHOSPHATASE 60 U/L (38-126); ALT/SGPT 22 U/L (21-72); AST/SGOT 23 U/L (17-59); BILIRUBIN,TOTAL 0.6 mg/dL (0.2-1.3); BLOOD UREA NITROGEN 19 mg/dL (9-20); CARBON DIOXIDE 26 mmol/L (22-30); GFR AFRICAN-AMERICAN > 60; GLUCOSE,RANDOM 96 mg/dL (75-110); TOTAL PROTEIN 6.9 g/dL (6.3-8.3)
[2017-02-10 08:35] LABS: CALCIUM 8.8 mg/dl (8.6-10.4); MAGNESIUM 2.4 mg/dL (1.6-2.3); PHOSPHOROUS 2.5 mg/dL (2.5-4.5)
[2017-02-10] MEDS ORDERED: Gentamicin 160 MG in Sodium Chloride 0.9% 100 ML IVPB ONE (09:30)
[2017-02-10] MEDS: Pantoprazole 40 mg EC Tab PO SCH (09:51)
[2017-02-10] MEDS ORDERED: Propofol 10 mg/ml Inj (20 ML) ONE (11:25)
[2017-02-10] MEDS ORDERED: Midazolam 2 MG/2 ML VIAL ONE (11:25)
[2017-02-10] MEDS ORDERED: Sodium Chloride 0.9% 100 ML IV ONE (11:30)
[2017-02-10] MEDS ORDERED: Lactated Ringer's 1,000 ML IV ONE (11:40)
--- NOTE | 2017-02-10 12:18 | PCM.SURG1 ---
Surgeon's Initial Post Op Note - Surgeon's Notes Surgeon: Maite Chemical Processor: [email or web address] Type of Anesthesia: General LMA Anesthesia Administered By: staff Pre-Operative Diagnosis: Gruss hematuria/urinary retention/ BPH Operative Findings: Hematuria secondary to E.P. w large median lobe Post-Operative Diagnosis: same Operation Performed: Cysto evac clots.fulguration of bleeding vessel Specimen/Specimens Removed: clots Estimated Blood Loss: EBL {In ML}: 0 Blood Products Given: N/A Drains Used: No Drains Post-Op Condition: Good Date of Surgery/Procedure: 02/10/17 Time of Surgery/Procedure: 12:19
[2017-02-10] MEDS: HYDROmorphone 0.5 mg/0.5 ml ISec IVP PRN ×2 (12:30→12:55)
[2017-02-11 07:34] LABS: BASO % 0.2 % (0.0-2.0); EOS # 0.1 K/uL (0.0-0.7); EOS % 0.8 % (0.0-4.0); HEMATOCRIT 31.6 % (35.0-51.0); LYMPH # 0.5 K/uL (1.0-4.3); LYMPH % 5.6 % (20.0-40.0); MEAN CELL VOLUME 85.7 fL (80.0-94.0); MEAN CORPUSCULAR HEMOGLOBIN 28.5 pg (27.0-31.0); MEAN CORPUSCULAR HGB CONC 33.2 g/dL (33.0-37.0); MEAN PLATELET VOLUME 7.4 fL (7.2-11.7); MONO # 0.6 K/uL (0.0-0.8); MONO % 6.9 % (0.0-10.0); PLATELET COUNT 209 K/uL (130-400); RED CELL DISTRIBUTION WIDTH 13.8 % (11.5-14.5); WHITE BLOOD COUNT 9.3 K/uL (4.8-10.8)
[2017-02-11 08:27] LABS: CHLORIDE 101 mmol/L (98-107)
[2017-02-11 08:28] LABS: POTASSIUM 3.5 mmol/L (3.6-5.2); SODIUM 141 mmol/L (132-148)
[2017-02-11 08:30] LABS: ALB/GLOB RATIO 0.9 (1.0-2.1); ALKALINE PHOSPHATASE 75 U/L (38-126); ALT/SGPT 26 U/L (21-72); AST/SGOT 27 U/L (17-59); BILIRUBIN,TOTAL 0.8 mg/dL (0.2-1.3); BLOOD UREA NITROGEN 21 mg/dL (9-20); CARBON DIOXIDE 25 mmol/L (22-30); GFR AFRICAN-AMERICAN > 60; GLUCOSE,RANDOM 103 mg/dL (75-110); TOTAL PROTEIN 7.1 g/dL (6.3-8.3)
[2017-02-11 08:31] LABS: CALCIUM 8.5 mg/dl (8.6-10.4)
[2017-02-11 08:45] LABS: BASOPHIL 1 % (0-2); EOSINOPHIL 2 % (0-4); NEUTROPHIL 79 % (50-75); REACTIVE LYMPHOCYTES 1 % (0-0); TOTAL CELLS COUNTED 100
[2017-02-11 08:48] LABS: LARGE PLATELETS PRESENT
[2017-02-11] MEDS: Pantoprazole 40 mg EC Tab PO SCH (10:02)
--- NOTE | 2017-02-11 12:43 | CP.PCM.PN ---
Subjective - Date & Time of Evaluation Date of Evaluation: 02/11/17 Time of Evaluation: 12:41 - Subjective Subjective: Pt examined, chart reviewed. urine is now clear. Will stop cbi if urine remains clear may be discharged tomorrow. with parker Objective - Vital Signs/Intake and Output Vital Signs (last 24 hours): Temp Pulse Resp BP Pulse Ox 99 F 119 H 22 125/68 97 02/11/17 07:00 02/11/17 07:00 02/11/17 07:00 02/11/17 07:00 02/11/17 07:00 Intake and Output: 02/11/17 02/11/17 06:59 18:59 Intake Total 300 Output Total 2700 Balance -2400 - Medications Medications: Current Medications Acetaminophen (Tylenol 325mg Tab) 325 mg PO Q6 PRN PRN Reason: Pain, Mild (1-3) Last Admin: 02/10/17 22:44 Dose: 325 mg Amlodipine Besylate (Norvasc) 10 mg PO DAILY [facility] Last Admin: 02/11/17 10:02 Dose: 10 mg Finasteride (Proscar) 5 mg PO DAILY [facility] Last Admin: 02/11/17 10:05 Dose: 5 mg Fluticasone Propionate (Flonase) 2 spr NS BID PRN PRN Reason: Sinus symptoms Ceftriaxone Sodium 1 gm/ (Sodium Chloride) 100 mls @ 100 mls/hr IVPB DAILY [facility] Last Admin: 02/11/17 10:01 Dose: 100 mls/hr Lactulose (Enulose) 20 gm PO DAILY PRN PRN Reason: Constipation Last Admin: 02/10/17 19:12 Dose: 20 gm Loratadine (Claritin) 10 mg PO DAILY PRN PRN Reason: Sinus symptoms Pantoprazole Sodium (Protonix Ec Tab) 40 mg PO DAILY [facility] Last Admin: 02/11/17 10:02 Dose: 40 mg Tamsulosin HCl (Flomax) 0.4 mg PO DAILY [facility] Last Admin: 02/11/17 10:02 Dose: 0.4 mg - Labs Labs: 02/11/17 07:18 02/11/17 07:18 PT 12.1 SECONDS (9.7-12.2) 02/07/17 16:58 INR 1.1 02/07/17 16:58 APTT 35 SECONDS (21-34) H 02/07/17 16:58
[2017-02-12] MEDS: Pantoprazole 40 mg EC Tab PO SCH (10:06)
[2017-02-12 17:25] VITALS: BP 116/65; PULSE 79; RESP 20; TEMP 98; O2SAT 97
--- NOTE | 2017-02-13 09:58 | PN ---
DATE: 02/11/2017 The patient is complaining of less pain. Urine is clear. Status post [employer]. Emerson Hernandez MD cc: [phone] TT: 02/11/2017 10:50:40 Confirmation # [id number] Dictation # [id number] tn
--- NOTE | 2017-02-15 12:38 | CON ---
DATE: 02/07/2017 CHIEF COMPLAINT: Gross hematuria and urinary retention. HISTORY OF PRESENT ILLNESS: The patient had presented to the [facility] where he pre sented with gross hematuria and urinary retention. A Bowers catheter was placed and he was referred t o our office. Most recently, he was evaluated Monday with cystoscopy which showed a massively enlarg ed prostate with bladder outlet obstruction. Full examination of the bladder cannot be carried out b ecause of the lack of an extra-long cystoscope. The patient has a history of BPH in the past. 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 The patient's urine was clear after cystoscopy. He returned to the ER because of a lar ge amount of bleeding. REVIEW OF SYSTEMS: RESPIRATORY: There is no shortness of breath, wheezing or respiratory complaints. CARDIAC: The patient has no chest pain or palpitations or cardiac complaints. GASTROINTESTINAL: The patient has no change in bowel habits, no constipation, no diarrhea, no abdomi nal pain. GENITOURINARY: The patient has a history of BPH. Has a history of gross hematuria and urinary reten tion with a Bowers in place. ORTHOPEDIC: Noncontributory. PSYCHIATRIC: Noncontributory. 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 He does not drink and does not smoke. PHYSICAL EXAMINATION: VITAL SIGNS: Temperature is 98.6. The vital signs are within normal limits. HEAD, EARS, EYES, NOSE, AND THROAT: Within normal limits. NECK: Supple. There are no bruits, nodes, or masses. CHEST: Clear bilaterally with no rales or rhonchi. HEART: Normal sinus rhythm. ABDOMEN: Soft, nontender. There are no masses or organomegaly. The bladder is not distended. GENITOURINARY: Bowers catheter is in place. Penis is normal, circumcised. Testicles, epididymis, an d cord are normal. The Bowers is draining bloody urine. LABORATORY DATA: I have reviewed the lab data with the patient and reviewed the clinical course and the other physicians' notes. MY IMPRESSION: Acute urinary retention secondary to hematuria and benign prostatic hypertrophy. SUGGEST: We have notified the OR staff to obtain an extra-long cystoscope, and the patient will be r e-cystoscoped once the extra-long cystoscope is present to determine if there are any bladder tumors or stones. In the meantime, Bowers catheter should be left in place. The catheter should be irrigate d. Further workup will be based on the cystoscopic findings. Dallas Arora MD cc: [phone] TT: 02/15/2017 12:38:25 Confirmation # [id number] Dictation # [id number] mn
--- NOTE | 2017-02-16 07:55 | OP ---
PROCEDURE DATE: 02/10/2017 PREOPERATIVE DIAGNOSES: Gross hematuria and urinary retention and benign prostatic hypertrophy. POSTOPERATIVE DIAGNOSES: Gross hematuria and urinary retention and benign prostatic hypertrophy, mul tiple clots within the bladder. PROCEDURE: As follows: The patient signed a detailed informed consent prior to the procedure. A ti meout was taken according to the rules and regulations of [facility]. The patient received prop hylactic antibiotics and was draped and prepped in the usual manner. He was cystoscoped with the ext ra-long cystoscope and the pendulous and membranous urethra was normal. Prostatic urethra showed tri lobar hypertrophy plus a very large median lobe. The bladder was entered atraumatically. There were multiple clots within the bladder which were evacuated. The bladder was inspected with both a 30 an d 70 degree lens. There was no evidence of urothelial tumor or stone. There was significant trabecu lation of the bladder. The median lobe was very friable and bled easily. Multiple areas of bleeding at the median lobe were fulgurated. Based on the above findings, the patient will need further ther apy for his prostate. He will be kept on Avodart and Flomax. He may need to undergo laser prostatec bigg or TURP. We have requested that an extra-long cystoscope for GreenLight laser be obtained. Dallas Arora MD cc: [phone] TT: 02/15/2017 12:45:47 sn
--- NOTE | 2017-02-27 09:37 | DS ---
The patient came to the hospital chief complaint weakness, fatigue, tiredness. The patient got bedre st, supportive care. Discharged to be followed as outpatient. Emerson Hernandez MD cc: [phone] TT: 02/26/2017 22:06:28 02/27/2017 08:37:02
== END 2017-02-12 18:00 | disposition home or self-care (01) | DRG 714 ==
LOC: C.ER 15:56 → C.9E 18:46 → C.3T 20:48
PROVIDERS: ADMIT Internal Medicine Pulmonary Disease; ATTEND Internal Medicine Pulmonary Disease
PROC: 0TCB8ZZ Extirpation of Matter from Bladder, Via Natural or Artificial Opening Endoscopic (ICD-10-PCS; 2017-02-10)
PROC: 0V508ZZ Destruction of Prostate, Via Natural or Artificial Opening Endoscopic (ICD-10-PCS; principal; 2017-02-10 10:00)
DX: N40.1 Benign prostatic hyperplasia with lower urinary tract symptoms (principal); R31.0 Gross hematuria; N32.89 Other specified disorders of bladder; N42.1 Congestion and hemorrhage of prostate; R33.8 Other retention of urine; I10 Essential (primary) hypertension; M17.12 Unilateral primary osteoarthritis, left knee; E78.00 Pure hypercholesterolemia, unspecified; Z90.49 Acquired absence of other specified parts of digestive tract; Z87.442 Personal history of urinary calculi; Z86.010 Personal history of colon polyps

== ENCOUNTER 2018-08-28 05:47 | Emergency (ER) | payer BC ==
[2018-08-28 05:47] VITALS: BMI 32.8
--- NOTE | 2018-08-28 06:30 | C.PDOC ---
History Of Present Illness 73 year old male presents to the ER with a complaint of dizziness that began at 0500 today. Patient states he was at work, went to the bathroom where he sat down, became diaphoretic and began feeling like the room was spinning. He re ports he has been recently sick with a productive cough. Patient reports he has a Hx of HTN and is compliant with his medication, otherwise denies other cardiac Hx. He feel better now while in the ER. Patient also reports he has a Hx of gout and believed the symptoms might have been due to that. Denies Hx of similar symptoms, chest pain, SOB, nausea, or vomiting. <Mirna Richter - Last Filed: 08/28/18 06:54> History Per: Patient History/Exam Limitations: no limitations Onset/Duration Of Symptoms: Hrs Current Symptoms Are (Timing): Better Activity At Onset Of Symptoms: Sitting Associated Symptoms Preceding Syncopal Episode: No Predromal Symptoms (Sudden Onset) Seizure Or Post-ictal Symptoms: None Fall Associated With With Symptoms: No Recent travel outside of the [place]: No - Symptoms Of CVA Associated Symptoms: denies: Impaired Speech, Seizure Activity, New Vision Deficit(Left), New Vision Deficit(Right), Decreased Ability To Walk, New Confusion <Mirna Richter - Last Filed: 08/28/18 06:54> <Crystal Loza - Last Filed: 08/28/18 09:51> Time Seen by Provider: 08/28/18 06:16 Chief Complaint (Nursing): Dizziness/Lightheaded Past Medical History Reviewed: Historical Data, Nursing Documentation, Vital Signs Vital Signs: Last Vital Signs Temp 97.5 F L 08/28/18 05:54 Pulse 84 08/28/18 05:54 Resp 16 08/28/18 05:54 BP 146/78 08/28/18 05:54 Pulse Ox 98 08/28/18 05:54 - Medical History PMH: Arthritis (LEFT KNEE), Back Problems, Colonic Polyps, Gall Bladder Disease, HTN, Hypercholesterolemia, Kidney Stones (25 years ago) Denies: Chronic Kidney Disease Surgical History: Cholecystectomy (2009) - [facility] Procedures DESTRUCTION OF PROSTATE, ENDO (02/07/17) EXTIRPATION OF MATTER FROM BLADDER, ENDO (02/07/17) Family History: States: Unknown Family Hx - Social History Hx Alcohol Use: No Hx Substance Use: No - Immunization History Hx Tetanus Toxoid Vaccination: Yes Hx Influenza Vaccination: Yes Hx Pneumococcal Vaccination: Yes <Mirna Richter Last Filed: 08/28/18 06:54> Vital Signs: Last Vital Signs Temp 97.5 F L 08/28/18 05:54 Pulse 73 08/28/18 08:29 Resp 18 08/28/18 08:29 BP 141/82 08/28/18 08:29 Pulse Ox 97 08/28/18 08:29 - [facility] Procedures DESTRUCTION OF PROSTATE, ENDO (02/07/17) EXTIRPATION OF MATTER FROM BLADDER, ENDO (02/07/17) <Crystal Loza - Last Filed: 08/28/18 09:51> Review Of Systems Except As Marked, All Systems Reviewed And Found Negative. Constitutional: Positive for: Sweats Cardiovascular: Negative for: Chest Pain, Palpitations Respiratory: Negative for: Cough, Shortness of Breath Gastrointestinal: Negative for: Nausea, Vomiting Neurological: Positive for: Dizziness <RoberMirna Last Filed: 08/28/18 06:54> Physical Exam - Physical Exam Appears: Non-toxic Skin: Normal Color, Warm, Dry Head: Atraumatic, Normacephalic Eye(s): bilateral: Normal Inspection Oral Mucosa: Moist Neck: Normal, Supple Chest: Symmetrical, No Tenderness Cardiovascular: Rhythm Regular Respiratory: Normal Breath Sounds, No Rales, No Rhonchi, No Wheezing Gastrointestinal/Abdominal: Soft, No Tenderness Back: No CVA Tenderness Extremity: Normal ROM (x4) Neurological/Psych: Oriented x3, Normal Speech <RoberMirna Bojorquez Last Filed: 08/28/18 06:54> ED Course And Treatment - Laboratory Results Result Diagrams: 08/28/18 06:36 08/28/18 06:36 ECG: Interpreted By Me, Viewed By Me ECG Rhythm: Sinus Rhythm ECG Interpretation: Normal Rate From EC O2 Sat by Pulse Oximetry: 98 <RoberMirna Bojorquez Last Filed: 08/28/18 06:54> - Laboratory Results Result Diagrams: 08/28/18 06:36 08/28/18 06:36 <Crystal Loza - Last Filed: 08/28/18 09:51> Medical Decision Making Medical Decision Making: Plan: * CT head * EKG * Blood work * EKG <Mirna Richter - Last Filed: 08/28/18 06:54> Disposition - Disposition Disposition Time: 07:00 <Mirna Richter - Last Filed: 08/28/18 06:54> Counseled Patient/Family Regarding: Studies Performed, Diagnosis, Need For Followup, Rx Given - Disposition Disposition Time: 09:50 <Crystal Loza - Last Filed: 08/28/18 09:51> - Disposition Referrals: Emerson Hernandez MD [Staff Provider] - Disposition: HOME/ ROUTINE Condition: STABLE Additional Instructions: FOLLOW UP WITH YOUR DOCTOR IN 1-2 DAYS USE MEDICATION NEEDED FOR PAIN RETURN TO ER IF SYMPTOMS WORSEN Prescriptions: Indomethacin [Indocin] 50 mg PO TID PRN #15 cap PRN Reason: PAIN Instructions: Dizziness, Nonvertigo, (DC), Gout (DC) Forms: [employer] (Ugandan) Print Language: HUNGARIAN - Clinical Impression Clinical Impression: Dizziness, Gout - Scribe Statement The provider has reviewed the documentation as recorded by the Scribandie Yadav All medical record entries made by the Jose De Jesusibandie were at my direction and personally dictated by me. I have reviewed the chart and agree that the record accurately reflects my personal performance of the history, physical exam, medical decision making, and the department course for this patient. I have also personally directed, reviewed, and agree with the discharge instructions and disposition. <Mirna Richter - Last Filed: 08/28/18 06:54> Physician Patient Turnover Patient Signed Over To: Crystal Loza Handoff Comments: fu labs, ct, dispo <Mirna Richter - Last Filed: 08/28/18 06:54> Addendum Addendum: 08/28/18 09:45 Patient resting comfortably, c/o right ankle pain consistent with his gout x 2 weeks. Right ankle/lower leg warm and erythematous, (+) TTP. He denies chest pain, palpitations, dizziness, headache, visual changes, facial droop, extremity weakness. CT head and blood work unremarkable, and patient would like to be discharged home. Will given lower dose Toradol IV + 500ml NS bolus (Cr 1.6). He is already on colchicine at home. Patient instructed to follow up with PMD in 1-2 days, and he understands he should return to ED if symptoms worsen. <Crystal Loza - Last Filed: 08/28/18 09:51>
[2018-08-28 06:44] LABS: BASO % 0.5 % (0.0-2.0); EOS # 0.2 K/uL (0.0-0.7); EOS % 3.7 % (0.0-4.0); HEMOGLOBIN 12.6 g/dL (12.0-18.0); LYMPH # 1.5 K/uL (1.0-4.3); LYMPH % 27.7 % (20.0-40.0); MEAN CELL VOLUME 87.7 fL (80.0-94.0); MEAN CORPUSCULAR HEMOGLOBIN 29.4 pg (27.0-31.0); MEAN CORPUSCULAR HGB CONC 33.5 g/dL (33.0-37.0); MEAN PLATELET VOLUME 7.4 fL (7.2-11.7); MONO # 0.4 K/uL (0.0-0.8); MONO % 7.3 % (0.0-10.0); NEUT # 3.4 K/uL (1.8-7.0); NEUT % 60.8 % (50.0-75.0); RBC 4.29 Mil/uL (4.40-5.90); RED CELL DISTRIBUTION WIDTH 13.9 % (11.5-14.5); WHITE BLOOD COUNT 5.5 K/uL (4.8-10.8)
[2018-08-28 06:54] LABS: ALB/GLOB RATIO 1.2 (1.0-2.1); ALBUMIN 4.2 g/dL (3.5-5.0); CALCIUM 10.2 mg/dl (8.6-10.4)
[2018-08-28 07:04] LABS: TROPONIN I 0.027 ng/mL (0.00-0.120)
[2018-08-28 09:25] VITALS: RESP 18
[2018-08-28] MEDS ORDERED: Sodium Chloride 0.9% 500 ML IV ONE ×2 (09:41→09:56)
--- NOTE | 2018-08-28 09:59 | RAD ---
Date of service: 08/28/2018 HISTORY: chest pain COMPARISON: 02/07/2017 TECHNIQUE: Chest PA and lateral FINDINGS: LUNGS: No active pulmonary disease. PLEURA: No significant pleural effusion identified. No pneumothorax apparent. CARDIOVASCULAR: No aortic atherosclerotic calcification present OSSEOUS STRUCTURES: No significant abnormalities. VISUALIZED UPPER ABDOMEN: Normal. OTHER FINDINGS: None. IMPRESSION: No active disease.
[2018-08-28 10:53] VITALS: BP 138/82; PULSE 82; TEMP 98.2; O2SAT 100
--- NOTE | 2018-08-28 11:05 | CT ---
Date of service: 08/28/2018 PROCEDURE: CT HEAD WITHOUT CONTRAST. HISTORY: Dizziness. Headache. COMPARISON: None available. TECHNIQUE: Axial computed tomography images were obtained through the head/brain without intravenous contrast. Radiation dose: Total exam DLP = 1112.96 mGy-cm. This CT exam was performed using one or more of the following dose reduction techniques: Automated exposure control, adjustment of the mA and/or kV according to patient size, and/or use of iterative reconstruction technique. FINDINGS: HEMORRHAGE: No intracranial hemorrhage. BRAIN: No mass effect or edema. Scattered focal lucencies in the subcortical and periventricular white matter suggestive for chronic microvascular ischemic change. Focal hypodensities in the bilateral external capsule may represent chronic ischemic changes. This is best seen on series 4, image 23. VENTRICLES: Unremarkable. No hydrocephalus. CALVARIUM: Unremarkable. PARANASAL SINUSES: Unremarkable as visualized. No significant inflammatory changes. MASTOID AIR CELLS: Unremarkable as visualized. No inflammatory changes. OTHER FINDINGS: None. IMPRESSION: No acute intracranial abnormality. Chronic microvascular ischemic changes. Focal hypodensities in the bilateral external capsule may represent chronic ischemic changes. This is best seen on series 4, image 23. If symptoms persist, consider correlation with MRI.
--- NOTE | 2018-08-29 19:49 | CARD ---
APPROVED REPORT Date of service: 08/28/2018 EKG Measurement Heart [id number] <Conclusion> Normal sinus rhythm Left anterior fascicular block Left ventricular hypertrophy with QRS widening Abnormal ECG
== END 2018-08-28 11:02 | disposition home or self-care (01) ==
LOC: C.ER 05:47
DX: R42 Dizziness and giddiness (principal); M10.9 Gout, unspecified; I10 Essential (primary) hypertension; E78.00 Pure hypercholesterolemia, unspecified
CPT/HCPCS: 70450; 71046; 80053; 84484; 85025; 93005; 96374; 99285; J1885; J7040